=== PATIENT | male | born 1970 | race Hispanic/Latino ===

== ENCOUNTER 2024-02-22 06:12 | Day surgery (SDC) | payer BC, SELFPAY ==
[2024-02-08 14:21] VITALS: BMI 25.1
[2024-02-22] VITALS (8 sets, daily range): BP systolic 103–127; BP diastolic 73–91; BMI 25.1
[2024-02-22] MEDS: TYLENOL 1000 MG PO (07:03)
[2024-02-22] MEDS: NORMOSOL-R 1000 IV (07:09)
--- NOTE | 2024-02-22 07:29 | W.SUR.PREOP ---
Pre-Operative Surgical Note
-
I have examined this patient prior to the performance of the scheduled procedure.
The patient's condition is unchanged from the time of the current History and
Physical and the patient is able to undergo the scheduled procedure.
--- NOTE | 2024-02-22 09:37 | W.IMMPOSTOP ---
Surgical Immed Post Op Note
-
Primary Surgeon: Gaurav Major MD
Assisting Surgeon: None
Pre-op Diagnosis: Bilateral inguinal hernias
Post-op Diagnosis: Same
Procedure Performed: Robotic bilateral inguinal hernia repairs with mesh
Anesthesia Type: General
Specimen / Cultures: Bilateral cord lipomas
Estimated Blood Loss: 7 cc
Complications: None
Operative Findings: Some adhesions from colon to the right anterior abdominal wall, lysed. Bilateral indirect inguinal hernias. No femoral or direct components. Bilateral cord lipomas right greater than left reduced and resected. Reinforced with
large Bard 3D max mid-weight polypropylene uncoated mesh.
POST OP PLAN:
Will discharge home with an ice pack after voiding.
--- NOTE | 2024-02-22 09:40 | OR.RPT ---
Operative Report
Operative Report
Patient Name: Timothy Iyer
: 1970
Date of Operation: 02/22/2024
Preoperative Diagnosis: Bilateral inguinal hernias
Postoperative Diagnosis: Same
Procedure(s):
Robotic bilateral inguinal Hernia Repair with mesh, (DELMY approach)
Surgeon(s):
Dr. Major
Bolt Loader(s):
EULA Taylor
Anesthesia: General
Estimated Blood Loss: 7 cc
Urine Output: None
Drains/Lines/Implants: Large 3D Max Bard mid weight mesh x2
Specimens: Bilateral cord lipomas (right greater than left)
Indication for surgery: The patient has a history of groin pain and noted on exam to have bilateral inguinal Hernia(s). Following review of therapeutic options they have elected to undergo a minimally invasive repair.
Operative Findings: Some adhesions from colon to the right anterior abdominal wall, lysed. Bilateral indirect inguinal hernias. No femoral or direct components. Bilateral cord lipomas right greater than left reduced and resected. Reinforced with
large Bard 3D max mid-weight polypropylene uncoated mesh.
Details of the operation:
The patient was brought to the Operating Room and placed in the supine position with the arms tucked. IV antibiotics were infused and Venodyne stockings placed. Following uneventful induction of general endotracheal anesthesia, an orogastric tube
were placed. The abdomen was prepped and draped in the usual sterile fashion. The abdomen was entered using a Veress technique which required 1 pass, pneumoperitoneum to 15 mmHg was obtained without difficulty. A 8mm trochar was passed through the
abdominal wall roughly 20 cm cephalad to the inguinal canal. We then confirmed that no inadvertent injury was made while passing the trocar or Veress needle. We then placed two additional 8 mm ports in the left upper and right upper quadrants. We
then docked the robot with a Prograsper in the left hand port and monopolar scissors in the right. Bilateral indirect inguinal hernias were immediately noted. There was also some adhesions from colon to the right anterior abdominal wall. We began
by lysing these adhesions to throughout the colon.. We then began by creating a flap at the level of the ASIS laterally working our way medially to the medial umbilical fold on the right side. Staying onto the peritoneum we were able to
circumferentially dissect around the hernia sac and and peel it off of the underlying spermatic cord and testicular vessels, taking care to preserve them. Medially we identified the midline pubis as well as Arash's ligament and ensured to dissect
2 cm below the pubic rim over the bladder. After exposure of the entire myopectineal orifice we identified and reduced: A small sized indirect inguinal hernia, no direct inguinal hernia, no femoral hernia, a medium cord lipoma, which was removed.
We then repeated the exact same procedure on the patient's left side and identified a small size indirect inguinal hernia, no direct inguinal hernia, no femoral hernia, a small cord lipoma which was reduced and removed as well.
We then fixated 2 large 3D max meshes with 2-0 Vicryl stitches at coopers medially and superior laterally bilaterally. The flap was then closed with a running 2-0 barbed monocryl suture ensuring that the tail was cut flush with the medial fat pad
so that no barbs were exposed. A 2-0 PDS Stratafix barbed suture was used for the patient's left side as this had been opened already. During the closure of the flap a suction cannula was inserted and 20 cc of quarter percent Marcaine was
instilled. The area in the flap cavity was then evacuated of air confirming that the mesh was flush and there were no folds. No rent in the peritoneum was identified however pneumoperitoneum behind the flap did reestablish, but the mesh remained
in good position. All needles, instruments as well as the cord lipomas via a Endo Catch bag were then removed and the robot was undocked. The abdomen was then desufflated, and pneumoperitoneum evacuated. All skin sites were then closed with 4-0
Monocryl followed by Dermabond. Counts were correct and overall, the patient tolerated the procedure well and was taken to the Recovery Room postoperatively in stable condition.
I was the attending physician and performed the procedure with assistance of the PA above. The assistance of Jenny Roland was required due to the complexity of the procedure. During the procedure Jenny assisted with changing instruments, tissue
retraction, specimen removal and closure of the wound.
I was present for all portions of the case excluding wound closure.
Gaurav Major MD
[2024-02-22] MEDS: MOTRIN 600 MG PO (11:32)
== END 2024-02-22 11:50 | disposition home or self-care (01) ==
LOC: SDS 06:12
PROVIDERS: ATTENDING PHYSICIAN Surgery; FAMILY PHYSICIAN Family Medicine
DX: K40.20 Bilateral inguinal hernia, without obstruction or gangrene, not specified as recurrent (principal); D17.6 Benign lipomatous neoplasm of spermatic cord
CPT/HCPCS: 49650; 88304; 36415; 93005; C1781; J1335

== ENCOUNTER → 2024-06-21 14:21 | Outpatient (REF) | payer BC, SELFPAY | LOC: RAD 14:21 | PROVIDERS: ATTENDING PHYSICIAN Nurse Practitioner Family; FAMILY PHYSICIAN Family Medicine | DX: Z87.01 Personal history of pneumonia (recurrent) (principal) | CPT/HCPCS: 71046 ==